=== PATIENT | male | born 1955 | race Caucasian/White ===

== ENCOUNTER 2018-10-19 14:38 | Emergency (ER) | payer OTHER ==
[~2018-10-19] VITALS: Ht 167.6 cm; Wt 81.2 kg
[2018-10-19 14:43] VITALS: BP_SYST 154
[2018-10-19] MEDS ORDERED: OXYMETAZOLINE HCL 0.05% NASAL SPRAY NS ONE (15:15)
[2018-10-19 17:12] VITALS: BP_SYST 150
[2018-10-19] MEDS ORDERED: ATEN-41 PO (20:57)
[2018-10-19] MEDS ORDERED: FLO44 INH (20:57)
[2018-10-19] MEDS ORDERED: ALBU8.5H8 INH (20:57)
[2018-10-19] MEDS ORDERED: ALPR0.5T PO (20:57)
[2018-10-19] MEDS ORDERED: OMEP20CA10 PO (20:57)
[2018-10-19] MEDS ORDERED: OMEG-143 PO (20:57)
[2018-10-19] MEDS ORDERED: TRIA1TAB96 PO (20:57)
[2018-10-19] MEDS ORDERED: BETA45CR3 TP (20:57)
[2018-10-19] MEDS ORDERED: FLUT1DIS3 IH (20:57)
[2018-10-19] MEDS ORDERED: LIP80 PO (20:57)
== END 2018-10-19 17:12 | disposition home or self-care (01) ==
LOC: SED 14:38
DX: R04.0 Epistaxis (principal); I10 Essential (primary) hypertension; E78.5 Hyperlipidemia, unspecified; I48.91 Unspecified atrial fibrillation; Z85.47 Personal history of malignant neoplasm of testis; Z88.0 Allergy status to penicillin
CPT/HCPCS: 99284

== ENCOUNTER 2018-10-19 19:39 | Emergency (ER) | payer OTHER ==
[~2018-10-19] VITALS: Ht 175.3 cm; Wt 86.2 kg
[2018-10-19 19:52] VITALS: BP_SYST 118
[2018-10-19 20:26] LABS: BASOPHILS # (AUTO) 0.4 K/uL (0.0-0.2); BASOPHILS % (AUTO) 4.7 % (0.0-2.0); EOSINOPHILS # (AUTO) 0.3 K/uL (0.0-0.4); EOSINOPHILS % (AUTO) 2.9 % (0.0-4.0); HEMATOCRIT 50.3 % (36-54); HEMOGLOBIN 16.9 g/dL (14.0-18.0); LYMPHOCYTES # (AUTO) 2.1 K/uL (1.0-5.5); LYMPHOCYTES % (AUTO) 22.5 % (20.5-51.5); MEAN CORPUSCULAR HEMOGLOBIN 31 pg (27-31); MEAN CORPUSCULAR HGB CONC 34 % (32-36); MEAN CORPUSCULAR VOLUME 92 fL (79.0-98.0); MONOCYTES % (AUTO) 10.8 % (1.7-9.3); NEUTROPHILS # (AUTO) 5.4 K/uL (1.8-7.7); NEUTROPHILS % (AUTO) 59.1 % (40.0-70.0); PLATELET COUNT (AUTO) 251 K/uL (130-430); RED BLOOD CELL COUNT(AUTO) 5.45 MIL/uL (4.2-6.2); RED CELL DISTRIBUTION WIDTH 13.6 % (9.0-15.0); WHITE BLOOD COUNT (AUTO) 9.3 K/uL (4.8-10.8)
[2018-10-19 20:34] LABS: CALCIUM 9.2 mg/dL (8.4-11.0); CREATININE 0.92 mg/dL (0.55-1.30)
[2018-10-19 20:39] LABS: ALBUMIN 3.7 g/dL (3.4-4.8); TOTAL BILIRUBIN 1.1 mg/dL (0.0-1.0)
[2018-10-19 20:44] LABS: INR 1.1 (0.80-1.20); PROTHROMBIN TIME 11.1 SECS (9.5-12.5)
[2018-10-19] MEDS ORDERED: ATEN-41 PO (20:57)
[2018-10-19] MEDS ORDERED: ALBU8.5H8 INH (20:57)
[2018-10-19] MEDS ORDERED: FLUT1DIS3 IH (20:57)
[2018-10-19] MEDS ORDERED: ALPR0.5T PO (20:57)
[2018-10-19] MEDS ORDERED: TRIA1TAB96 PO (20:57)
[2018-10-19] MEDS ORDERED: BETA45CR3 TP (20:57)
[2018-10-19] MEDS ORDERED: OMEG-143 PO (20:57)
[2018-10-19] MEDS ORDERED: LIP80 PO (20:57)
[2018-10-19] MEDS ORDERED: OMEP20CA10 PO (20:57)
[2018-10-19] MEDS ORDERED: FLO44 INH (20:57)
[2018-10-19 22:30] VITALS: BP_SYST 118
== END 2018-10-19 22:30 | disposition home or self-care (01) ==
LOC: SED 19:39
DX: R04.0 Epistaxis (principal); I48.91 Unspecified atrial fibrillation; I10 Essential (primary) hypertension; E78.5 Hyperlipidemia, unspecified; Z85.47 Personal history of malignant neoplasm of testis; Z88.0 Allergy status to penicillin; Z79.899 Other long term (current) drug therapy
CPT/HCPCS: 36415; 80053; 85025; 85610-TC; 85730-TC; 99283

== ENCOUNTER 2024-01-07 10:10 | Emergency (ER) | payer MEDICARE, OTHER ==
[~2024-01-07] VITALS: Ht 177.8 cm; Wt 78.0 kg
[2024-01-07 10:10] VITALS: BP_SYST 137; PULSE 89; RESP 19; TEMP 98.2; O2SAT 96
[~2024-01-07 10:10] MED LIST: ALBU8.5H8 INH; ALPR0.5T PO; ATEN-41 PO; BETA45CR3 TP; FLO44 INH; FLUT1DIS3 INH; LIP80 PO; OMEG-143 PO; OMEP20CA15 PO; TRIA1TAB96 PO
[2024-01-07 11:22] LABS: BASOPHILS # (AUTO) 0.1 K/uL (0.0-0.2); BASOPHILS % (AUTO) 2.5 % (0.0-2.0); EOSINOPHILS # (AUTO) 0.1 K/uL (0.0-0.4); HEMATOCRIT 34.5 % (36-54); HEMOGLOBIN 11.9 g/dL (14.0-18.0); LYMPHOCYTES # (AUTO) 0.6 K/uL (1.0-5.5); LYMPHOCYTES % (AUTO) 18.2 % (20.5-51.5); MEAN CORPUSCULAR HEMOGLOBIN 35 pg (27-31); MEAN CORPUSCULAR HGB CONC 34 % (32-36); MEAN CORPUSCULAR VOLUME 101 fL (79.0-98.0); MONOCYTES # (AUTO) 0.6 K/uL (0.0-1.0); MONOCYTES % (AUTO) 17.2 % (1.7-9.3); NEUTROPHILS % (AUTO) 58.1 % (40.0-70.0); PLATELET COUNT (AUTO) 79 K/uL (130-430); RED BLOOD CELL COUNT(AUTO) 3.43 MIL/uL (4.2-6.2); RED CELL DISTRIBUTION WIDTH 15.5 % (9.0-15.0)
[2024-01-07 11:24] LABS: WHITE BLOOD COUNT (AUTO) 3.5 K/uL (4.8-10.8)
[2024-01-07 11:33] LABS: ANION GAP 9 (5-15); CALCIUM 8.8 mg/dL (8.4-11.0); CARBON DIOXIDE 25 mmol/L (23-29); CHLORIDE 103 mmol/L (98-107); CREATININE 1.61 mg/dL (0.55-1.30); GFR AFRICAN AMERICAN 55 mL/min (>90); GFR NON AFRICAN-AMERICAN 46 mL/min (>90); GLUCOSE 98 mg/dL (74-106); POTASSIUM 3.6 mmol/L (3.5-5.1); SODIUM SERUM 137 mmol/L (136-145); UREA NITROGEN, BLOOD 15 mg/dL (8-21)
[2024-01-07 11:40] LABS: ALANINE AMINOTRANSFERASE 22 U/L (12-78); ALBUMIN 2.3 g/dL (3.4-4.8); ALCOHOL, BLOOD 9 mg/dL (<10); ASPARTATE AMINOTRANSFERASE 54 U/L (10-37); BILIRUBIN,DIRECT 1.8 mg/dL (0.0-0.3); TOTAL BILIRUBIN 3.2 mg/dL (0.0-1.0); TOTAL PROTEIN, SERUM 7.8 g/dL (6.4-8.3)
[2024-01-07] MEDS: LIDOCAINE 1% 10 MG/ML, 20 ML MDV INJ ONE (12:30)
[2024-01-07] MEDS ORDERED: TRIA1CAP88 PO (13:12)
[2024-01-07 14:26] VITALS: BP_SYST 141; PULSE 75; RESP 17; TEMP 97.8; O2SAT 100
== END 2024-01-07 14:25 | disposition left against medical advice (07) ==
LOC: SED 10:10
DX: S63.124A Dislocation of interphalangeal joint of right thumb, initial encounter (principal); S01.81XA Laceration without foreign body of other part of head, initial encounter; R55 Syncope and collapse; R74.01 Elevation of levels of liver transaminase levels; J45.909 Unspecified asthma, uncomplicated; E78.5 Hyperlipidemia, unspecified; I10 Essential (primary) hypertension; Z85.47 Personal history of malignant neoplasm of testis; Z88.0 Allergy status to penicillin; Z79.899 Other long term (current) drug therapy; W22.8XXA Striking against or struck by other objects, initial encounter; Y93.89 Activity, other specified; Y92.89 Other specified places as the place of occurrence of the external cause; Y99.8 Other external cause status
CPT/HCPCS: 99285; 26770; 70450; 71045; 80076; 80048; 83880; 85025; 84484; 36415; 73140; 76376; 93005; 12011; G0482; J2001

== ENCOUNTER 2024-01-25 07:56 | Emergency (ER) | payer MEDICARE ==
[~2024-01-25] VITALS: Ht 177.8 cm; Wt 78.0 kg
[2024-01-25 07:56] VITALS: BP_SYST 132; PULSE 75; RESP 19; TEMP 97.2; O2SAT 95
[~2024-01-25 07:56] MED LIST changes: -BETA45CR3 TP; -FLO44 INH; -LIP80 PO; -OMEG-143 PO; +TRIA1CAP88 PO; -TRIA1TAB96 PO
== END 2024-01-25 08:08 | disposition home or self-care (01) ==
LOC: SED 07:56
DX: Z48.02 Encounter for removal of sutures (principal); J45.909 Unspecified asthma, uncomplicated; I10 Essential (primary) hypertension; E78.5 Hyperlipidemia, unspecified; Z88.0 Allergy status to penicillin; Z85.47 Personal history of malignant neoplasm of testis; Z79.899 Other long term (current) drug therapy
CPT/HCPCS: 99281

== ENCOUNTER 2024-09-12 09:14 | Inpatient (IN) | payer MEDICARE ==
[~2024-09-12] VITALS: Ht 177.8 cm; Wt 83.9 kg
[2024-09-12 09:25] VITALS: BP_SYST 91; PULSE 81; RESP 16; TEMP 96.9; O2SAT 95
[2024-09-12] MEDS: NS 1000 ML IV.SOLN IV ONE (09:48)
[2024-09-12 10:26] LABS: EOSINOPHILS % (AUTO) 0.5 % (0.0-4.0); LYMPHOCYTES # (AUTO) 0.4 K/uL (1.0-5.5); LYMPHOCYTES % (AUTO) 7.2 % (20.5-51.5); MONOCYTES # (AUTO) 0.8 K/uL (0.0-1.0)
[2024-09-12] MEDS: KETOROLAC TROMETHAMINE 30 MG VIAL IVP ONE (10:28)
[2024-09-12 10:48] LABS: BASOPHILS % (AUTO) 0.2 % (0.0-2.0); MEAN CORPUSCULAR HEMOGLOBIN 37 pg (27-31); MEAN CORPUSCULAR HGB CONC 35 % (32-36); MEAN CORPUSCULAR VOLUME 105 fL (79.0-98.0); MONOCYTES % (AUTO) 14.6 % (1.7-9.3); NEUTROPHILS # (AUTO) 4.1 K/uL (1.8-7.7); NEUTROPHILS % (AUTO) 77.5 % (40.0-70.0); RED CELL DISTRIBUTION WIDTH 17.9 % (9.0-15.0); WHITE BLOOD COUNT (AUTO) 5.3 K/uL (4.8-10.8)
[2024-09-12 11:04] LABS: RED BLOOD CELL COUNT(AUTO) 1.71 MIL/uL (4.2-6.2)
[2024-09-12 11:05] LABS: HEMOGLOBIN 6.3 g/dL (14.0-18.0)
[2024-09-12 11:06] LABS: ALANINE AMINOTRANSFERASE 78 U/L (12-78); ALBUMIN 3.2 g/dL (3.4-4.8); ANION GAP 16 (5-15); ASPARTATE AMINOTRANSFERASE 93 U/L (10-37); BILIRUBIN,DIRECT 4.8 mg/dL (0.0-0.3); CALCIUM 8.8 mg/dL (8.4-11.0); CARBON DIOXIDE 16 mmol/L (23-29); CHLORIDE 86 mmol/L (98-107); CREATININE 3.86 mg/dL (0.55-1.30); GFR AFRICAN AMERICAN 20 mL/min (>90); GLUCOSE 110 mg/dL (74-106); HEMATOCRIT 17.9 % (36-54); POTASSIUM 5.3 mmol/L (3.5-5.1); TOTAL BILIRUBIN 12.2 mg/dL (0.0-1.0); TOTAL PROTEIN, SERUM 5.5 g/dL (6.4-8.3)
[2024-09-12 11:13] LABS: GFR NON AFRICAN-AMERICAN 17 mL/min (>90); SODIUM SERUM 118 mmol/L (136-145); UREA NITROGEN, BLOOD 118 mg/dL (8-21)
[2024-09-12] MEDS ORDERED: HYD10 PO (11:58)
[2024-09-12] MEDS ORDERED: MIDO5TAB4 PO (11:58)
[2024-09-12] MEDS ORDERED: LACT10SO6 PO (11:58)
[2024-09-12] MEDS ORDERED: ERGO1250 PO (11:58)
[2024-09-12] MEDS ORDERED: ALBMDI INH (11:58)
[2024-09-12] MEDS ORDERED: TAMS-11 PO (11:58)
[2024-09-12] MEDS ORDERED: RIFA550T5 PO (11:58)
[2024-09-12 12:17] LABS: PLATELET COUNT (AUTO) 49 K/uL (130-430)
[2024-09-12 12:28] LABS: BILIRUBIN,URINE NEGATIVE (NEGATIVE); BLOOD, URINE NEGATIVE (NEGATIVE); CLARITY/URINE CLEAR (CLEAR); COLOR,URINE YELLOW (YELLOW); GLUCOSE,URINE NEGATIVE (NEGATIVE); KETONES,URINE NEGATIVE (NEGATIVE); LEUKOCYTE ESTERASE ,URINE NEGATIVE (NEGATIVE); NITRITE, URINE NEGATIVE (NEGATIVE); PROTEIN URINE NEGATIVE (NEGATIVE); UROBILINOGEN,URINE 0.2 (0.2-1.0)
[2024-09-12 13:10] LABS: ANISOCYTOSIS 1+
[2024-09-12] MEDS ORDERED: KETOROLAC TROMETHAMINE 30 MG VIAL IVP PRN (13:45)
[2024-09-12 16:24] VITALS: BP_SYST 95; PULSE 76; RESP 15; TEMP 96.8
[2024-09-12 20:15] VITALS: BP_SYST 93; PULSE 79; RESP 18; TEMP 96.2; O2SAT 98
[2024-09-13] VITALS (9 sets, daily range): BP systolic 82–112; PULSE 69–89; RESP 16–20; TEMP 96.3–98.4; O2SAT 16–99
[2024-09-13] MEDS: NACL 0.9% 1,000 ML IV SCH (02:22)
[2024-09-13] MEDS ORDERED: ALBUTEROL SULFATE 0.083% 2.5 MG/3 ML VIAL.NEB INH PRN (09:30)
[2024-09-13] MEDS ORDERED: IPRATROPIUM BROM 0.5 MG/2.5 ML VIAL.NEB (ATROVENT) INH PRN (09:30)
[2024-09-13] MEDS: D5/0.45 NS 1,000 ML IV SCH (09:30)
[2024-09-13] MEDS ORDERED: OMEPRAZOLE Non-Formulary 20 MG CAPSULE.DR PO SCH (09:30)
[2024-09-13] MEDS: HYDROcodone/ACETAMIN 10-325 MG TAB PO PRN (09:35)
[2024-09-13 11:09] LABS: INR 2.2 (0.80-1.20)
[2024-09-13 11:13] LABS: EOSINOPHILS % (AUTO) 0.6 % (0.0-4.0); LYMPHOCYTES # (AUTO) 0.4 K/uL (1.0-5.5); LYMPHOCYTES % (AUTO) 6.2 % (20.5-51.5); MEAN CORPUSCULAR HEMOGLOBIN 36 pg (27-31); MEAN CORPUSCULAR HGB CONC 35 % (32-36); MEAN CORPUSCULAR VOLUME 102 fL (79.0-98.0); MONOCYTES # (AUTO) 0.4 K/uL (0.0-1.0); NEUTROPHILS # (AUTO) 5.3 K/uL (1.8-7.7); PLATELET COUNT (AUTO) 55 K/uL (130-430); WHITE BLOOD COUNT (AUTO) 6.2 K/uL (4.8-10.8)
[2024-09-13 11:17] LABS: ALBUMIN 2.7 g/dL (3.4-4.8); CALCIUM 8.6 mg/dL (8.4-11.0); CREATININE 3.73 mg/dL (0.55-1.30); PHOSPHORUS 7.6 mg/dL (2.7-4.5); POTASSIUM 5.3 mmol/L (3.5-5.1); TOTAL BILIRUBIN 10.7 mg/dL (0.0-1.0)
[2024-09-13 11:25] LABS: RED BLOOD CELL COUNT(AUTO) 1.91 MIL/uL (4.2-6.2)
[2024-09-13 11:27] LABS: HEMATOCRIT 19.4 % (36-54); HEMOGLOBIN 6.8 g/dL (14.0-18.0)
[2024-09-13] MEDS: ONDANSETRON HCL 4 MG/2 ML VIAL IVP PRN (11:42)
[2024-09-13 12:28] LABS: NEUTROPHILS % (AUTO) 86.2 % (40.0-70.0)
[2024-09-13 12:30] LABS: ANISOCYTOSIS 2+
[2024-09-13 13:09] LABS: PROTHROMBIN TIME 21.2 SECS (9.5-12.5)
[2024-09-13] MEDS: PANTOPRAZOLE SODIUM 40 MG TAB PO ONE (15:35)
[2024-09-13] MEDS ORDERED: FLUTICASONE 250 mCg/SALMETEROL 50 mCg DISKUS W.DEV INH SCH (21:00)
[2024-09-13] MEDS: LACTULOSE 20 GM/30 ML UDC PO SCH (22:56)
[2024-09-13] MEDS: RIFAXIMIN 550 MG TABLET PO SCH (22:56)
[2024-09-13] MEDS: MIDODRINE HCL 5 MG TABLET (PROAMATINE) PO SCH (22:56)
[2024-09-13] MEDS: HYDROCORTISONE 10 MG TABLET (CORTEF) PO SCH (22:57)
[2024-09-13] MEDS: TAMSULOSIN HCL 0.4 MG CAP PO SCH (22:58)
[2024-09-14] VITALS (11 sets, daily range): BP systolic 86–131; PULSE 67–98; RESP 16–20; TEMP 95.4–98.1; O2SAT 93–100
[2024-09-14] MEDS: ALBUMIN HUMAN 25% 100 ML IV SCH (01:07)
[2024-09-14] MEDS: OCTREOTIDE ACETATE 100 MCG/ML AMP SUBCUT SCH (06:00)
[2024-09-14 07:10] LABS: BASOPHILS % (AUTO) 0.1 % (0.0-2.0); EOSINOPHILS % (AUTO) 0.3 % (0.0-4.0); HEMATOCRIT 23.5 % (36-54); HEMOGLOBIN 8.3 g/dL (14.0-18.0); LYMPHOCYTES # (AUTO) 0.1 K/uL (1.0-5.5); MEAN CORPUSCULAR HEMOGLOBIN 36 pg (27-31); MEAN CORPUSCULAR HGB CONC 35 % (32-36); MEAN CORPUSCULAR VOLUME 101 fL (79.0-98.0); MONOCYTES # (AUTO) 0.5 K/uL (0.0-1.0); MONOCYTES % (AUTO) 6.5 % (1.7-9.3); NEUTROPHILS # (AUTO) 6.6 K/uL (1.8-7.7); NEUTROPHILS % (AUTO) 91.1 % (40.0-70.0); RED BLOOD CELL COUNT(AUTO) 2.32 MIL/uL (4.2-6.2); RED CELL DISTRIBUTION WIDTH 21.5 % (9.0-15.0); RETICULOCYTE COUNT 3.5 % (0.5-1.5); WHITE BLOOD COUNT (AUTO) 7.3 K/uL (4.8-10.8)
[2024-09-14 07:28] LABS: CREATININE 3.63 mg/dL (0.55-1.30); PHOSPHORUS 7.9 mg/dL (2.7-4.5); POTASSIUM 5.4 mmol/L (3.5-5.1)
[2024-09-14 07:33] LABS: TOTAL IRON BIND. CAPACITY 107 ug/dL (250-450)
[2024-09-14 08:27] LABS: PLATELET COUNT (AUTO) 43 K/uL (130-430)
[2024-09-14] MEDS: LEVOFLOXACIN 250 MG/D5W 50 ML IV SCH (08:35)
[2024-09-14] MEDS: NACL 0.9% 1,000 ML IV SCH (09:45)
[2024-09-14] MEDS: PANTOPRAZOLE SODIUM 40 MG TAB PO SCH (10:21)
[2024-09-14] MEDS: SODIUM BICARBONATE 650 MG TABLET PO SCH (10:26)
[2024-09-14 11:51] LABS: ANISOCYTOSIS 2+; OVALOCYTES FEW
[2024-09-14] MEDS: ALBUTEROL SULFATE 0.083% 2.5 MG/3 ML VIAL.NEB INH SCH (11:51)
[2024-09-14] MEDS: BUDESONIDE 0.5 MG/2 ML AMPUL.NEB IH SCH (11:51)
[2024-09-14] MEDS: SODIUM ZIRCONIUM CYCLOSILICATE 10 GM POWD.PACK PO ONE (12:47)
[2024-09-14] MEDS: SEVELAMER CARBONATE 800 MG TABLET PO SCH (12:49)
[2024-09-14] MEDS: SODIUM BICARBONATE 8.4% JECT 50 MEQ/50 ML SYRINGE ONE (13:55)
[2024-09-14] MEDS: SODIUM BICARBONATE 8.4% JECT 150 MEQ in D5W 1,000 ML IVP SCH (14:04)
[2024-09-14] MEDS: metroNIDAZOLE 500 mg/NS 100 ML IV SCH (14:08)
[2024-09-14] MEDS: SODIUM BICARBONATE 8.4% JECT 150 MEQ in D5W 1,000 ML IV SCH (14:54)
[2024-09-14] MEDS: PHYTONADIONE 10 MG in NS 50 ML IV ONE (16:36)
[2024-09-14 20:52] LABS: CREATININE 3.73 mg/dL (0.55-1.30); POTASSIUM 4.5 mmol/L (3.5-5.1)
[2024-09-14] MEDS: SODIUM CHLORIDE 3% *HI-ALERT* 500 ML IV SCH (21:21)
[2024-09-14] MEDS: MIDODRINE HCL 5 MG TABLET (PROAMATINE) PO SCH (21:22)
[2024-09-15 00:01] VITALS: BP_SYST 107; PULSE 96; RESP 18; TEMP 96.2; O2SAT 100
[2024-09-15 07:10] LABS: EOSINOPHILS % (AUTO) 0.1 % (0.0-4.0); LYMPHOCYTES # (AUTO) 0.1 K/uL (1.0-5.5); LYMPHOCYTES % (AUTO) 2.3 % (20.5-51.5); MEAN CORPUSCULAR HEMOGLOBIN 36 pg (27-31); MEAN CORPUSCULAR HGB CONC 36 % (32-36); MEAN CORPUSCULAR VOLUME 100 fL (79.0-98.0); MONOCYTES # (AUTO) 0.2 K/uL (0.0-1.0); MONOCYTES % (AUTO) 4.5 % (1.7-9.3); NEUTROPHILS # (AUTO) 3.6 K/uL (1.8-7.7); NEUTROPHILS % (AUTO) 93.1 % (40.0-70.0); RED CELL DISTRIBUTION WIDTH 21.3 % (9.0-15.0); WHITE BLOOD COUNT (AUTO) 3.8 K/uL (4.8-10.8)
[2024-09-15 07:15] VITALS: O2SAT 98
[2024-09-15 07:42] LABS: INR 2.5 (0.80-1.20); PROTHROMBIN TIME 24.7 SECS (9.5-12.5)
[2024-09-15 07:47] LABS: ALBUMIN 3.2 g/dL (3.4-4.8); CALCIUM 9.3 mg/dL (8.4-11.0); CREATININE 3.7 mg/dL (0.55-1.30); PHOSPHORUS 8.5 mg/dL (2.7-4.5); POTASSIUM 4.6 mmol/L (3.5-5.1); RED BLOOD CELL COUNT(AUTO) 1.88 MIL/uL (4.2-6.2); TOTAL BILIRUBIN 11.4 mg/dL (0.0-1.0)
[2024-09-15 07:50] LABS: HEMATOCRIT 18.8 % (36-54); HEMOGLOBIN 6.7 g/dL (14.0-18.0); PLATELET COUNT (AUTO) 33 K/uL (130-430)
[2024-09-15 08:00] VITALS: BP_SYST 115; PULSE 99; RESP 20; TEMP 98.1; O2SAT 98
[2024-09-15 11:05] VITALS: BP_SYST 91; PULSE 106; RESP 16; TEMP 97.5; O2SAT 99
[2024-09-15] MEDS: ERGOCALCIFEROL PO SCH (12:43)
[2024-09-15] MEDS: SODIUM BICARBONATE 650 MG TABLET PO SCH (15:05)
[2024-09-15] MEDS: FOLIC ACID 1 MG TABLET PO ONE (15:13)
[2024-09-15 15:21] VITALS: BP_SYST 116; PULSE 101; RESP 16; TEMP 97; O2SAT 99
[2024-09-15 20:00] VITALS: BP_SYST 104; PULSE 96; RESP 16; TEMP 97.8; O2SAT 100; O2SAT 98
[2024-09-16] VITALS (11 sets, daily range): BP systolic 97–110; PULSE 87–105; RESP 14–17; TEMP 97.2–98.2; O2SAT 95–100
[2024-09-16 07:06] LABS: INR 1.9 (0.80-1.20); PROTHROMBIN TIME 18.9 SECS (9.5-12.5)
[2024-09-16 07:21] LABS: CALCIUM 9.4 mg/dL (8.4-11.0); CREATININE 3.53 mg/dL (0.55-1.30); PHOSPHORUS 7.5 mg/dL (2.7-4.5); POTASSIUM 4.4 mmol/L (3.5-5.1)
[2024-09-16 07:32] LABS: BASOPHILS % (AUTO) 0.2 % (0.0-2.0); EOSINOPHILS % (AUTO) 0.2 % (0.0-4.0); HEMOGLOBIN 7.3 g/dL (14.0-18.0); LYMPHOCYTES # (AUTO) 0.2 K/uL (1.0-5.5); LYMPHOCYTES % (AUTO) 3.7 % (20.5-51.5); MEAN CORPUSCULAR HEMOGLOBIN 34 pg (27-31); MEAN CORPUSCULAR HGB CONC 35 % (32-36); MEAN CORPUSCULAR VOLUME 98 fL (79.0-98.0); MONOCYTES # (AUTO) 0.3 K/uL (0.0-1.0); NEUTROPHILS # (AUTO) 4.1 K/uL (1.8-7.7); NEUTROPHILS % (AUTO) 88.9 % (40.0-70.0); RED BLOOD CELL COUNT(AUTO) 2.13 MIL/uL (4.2-6.2); RED CELL DISTRIBUTION WIDTH 21.5 % (9.0-15.0); WHITE BLOOD COUNT (AUTO) 4.6 K/uL (4.8-10.8)
[2024-09-16 07:45] LABS: HEMATOCRIT 20.8 % (36-54)
[2024-09-16 07:46] LABS: PLATELET COUNT (AUTO) 31 K/uL (130-430)
[2024-09-16] MEDS: FOLIC ACID 1 MG TABLET PO SCH (09:52)
[2024-09-16] MEDS: PHYTONADIONE 10 MG/ML AMP SUBCUT ONE (10:00)
[2024-09-16] MEDS: HYDROcodone/ACETAMIN 5-325 MG TAB (NORCO/ VICODIN) PO PRN (14:47)
[2024-09-16] MEDS: MIDODRINE HCL 5 MG TABLET (PROAMATINE) PO SCH (16:35)
[2024-09-17] VITALS (9 sets, daily range): BP systolic 105–119; PULSE 88–93; RESP 16; TEMP 98.1–98.4; O2SAT 96–100
[2024-09-17 05:40] LABS: EOSINOPHILS % (AUTO) 0.2 % (0.0-4.0); HEMOGLOBIN 7.3 g/dL (14.0-18.0); LYMPHOCYTES # (AUTO) 0.2 K/uL (1.0-5.5); LYMPHOCYTES % (AUTO) 4.2 % (20.5-51.5); MEAN CORPUSCULAR HEMOGLOBIN 34 pg (27-31); MEAN CORPUSCULAR HGB CONC 34 % (32-36); MEAN CORPUSCULAR VOLUME 100 fL (79.0-98.0); MONOCYTES # (AUTO) 0.3 K/uL (0.0-1.0); MONOCYTES % (AUTO) 6.9 % (1.7-9.3); NEUTROPHILS # (AUTO) 4.5 K/uL (1.8-7.7); NEUTROPHILS % (AUTO) 88.7 % (40.0-70.0); RED BLOOD CELL COUNT(AUTO) 2.14 MIL/uL (4.2-6.2); RED CELL DISTRIBUTION WIDTH 21.6 % (9.0-15.0); WHITE BLOOD COUNT (AUTO) 5.1 K/uL (4.8-10.8)
[2024-09-17 06:02] LABS: INR 1.9 (0.80-1.20); PROTHROMBIN TIME 19.6 SECS (9.5-12.5)
[2024-09-17 06:19] LABS: ALBUMIN 3.1 g/dL (3.4-4.8); BILIRUBIN,DIRECT 3.4 mg/dL (0.0-0.3); CALCIUM 8.8 mg/dL (8.4-11.0); CREATININE 3.27 mg/dL (0.55-1.30); PHOSPHORUS 7.1 mg/dL (2.7-4.5); POTASSIUM 4.8 mmol/L (3.5-5.1); TOTAL BILIRUBIN 10.6 mg/dL (0.0-1.0)
[2024-09-17 06:31] LABS: HEMATOCRIT 21.4 % (36-54); PLATELET COUNT (AUTO) 27 K/uL (130-430)
[2024-09-17 06:56] LABS: ERYTHROCYTE SEDIMENTATION RATE < 1 MM/HR (0-15)
[2024-09-17] MEDS: ACETAMINOPHEN 325 MG TABLET PO PRN (22:23)
[2024-09-18] VITALS (11 sets, daily range): BP systolic 105–127; PULSE 99–104; RESP 18–20; TEMP 97.4–98; O2SAT 95–100
[2024-09-18 07:13] LABS: BASOPHILS % (AUTO) 0.1 % (0.0-2.0); EOSINOPHILS % (AUTO) 0.1 % (0.0-4.0); HEMOGLOBIN 7.2 g/dL (14.0-18.0); LYMPHOCYTES # (AUTO) 0.2 K/uL (1.0-5.5); LYMPHOCYTES % (AUTO) 3.9 % (20.5-51.5); MEAN CORPUSCULAR HEMOGLOBIN 34 pg (27-31); MEAN CORPUSCULAR HGB CONC 34 % (32-36); MEAN CORPUSCULAR VOLUME 100 fL (79.0-98.0); MONOCYTES # (AUTO) 0.6 K/uL (0.0-1.0); MONOCYTES % (AUTO) 9.1 % (1.7-9.3); NEUTROPHILS # (AUTO) 5.4 K/uL (1.8-7.7); NEUTROPHILS % (AUTO) 86.8 % (40.0-70.0); RED BLOOD CELL COUNT(AUTO) 2.12 MIL/uL (4.2-6.2); RED CELL DISTRIBUTION WIDTH 22.1 % (9.0-15.0); WHITE BLOOD COUNT (AUTO) 6.3 K/uL (4.8-10.8)
[2024-09-18 07:38] LABS: CALCIUM 8.9 mg/dL (8.4-11.0); CREATININE 3.31 mg/dL (0.55-1.30); PHOSPHORUS 6.6 mg/dL (2.7-4.5); POTASSIUM 4.9 mmol/L (3.5-5.1)
[2024-09-18 07:39] LABS: ERYTHROCYTE SEDIMENTATION RATE < 1 MM/HR (0-15)
[2024-09-18 08:00] LABS: HEMATOCRIT 21.2 % (36-54)
[2024-09-18 08:01] LABS: PLATELET COUNT (AUTO) 26 K/uL (130-430)
[2024-09-19] VITALS (14 sets, daily range): BP systolic 107–118; PULSE 81–110; RESP 17–20; TEMP 96.9–98.2; O2SAT 95–98
[2024-09-19 07:58] LABS: CALCIUM 9.1 mg/dL (8.4-11.0); CREATININE 3.62 mg/dL (0.55-1.30); PHOSPHORUS 6.7 mg/dL (2.7-4.5)
[2024-09-19 08:07] LABS: BASOPHILS % (AUTO) 0.1 % (0.0-2.0); EOSINOPHILS % (AUTO) 0.1 % (0.0-4.0); HEMATOCRIT 22.3 % (36-54); HEMOGLOBIN 7.6 g/dL (14.0-18.0); LYMPHOCYTES # (AUTO) 0.2 K/uL (1.0-5.5); LYMPHOCYTES % (AUTO) 2.7 % (20.5-51.5); MEAN CORPUSCULAR HEMOGLOBIN 34 pg (27-31); MEAN CORPUSCULAR HGB CONC 34 % (32-36); MEAN CORPUSCULAR VOLUME 101 fL (79.0-98.0); MONOCYTES # (AUTO) 0.7 K/uL (0.0-1.0); MONOCYTES % (AUTO) 7.5 % (1.7-9.3); RED BLOOD CELL COUNT(AUTO) 2.22 MIL/uL (4.2-6.2); RED CELL DISTRIBUTION WIDTH 21.7 % (9.0-15.0); WHITE BLOOD COUNT (AUTO) 8.9 K/uL (4.8-10.8)
[2024-09-19 08:35] LABS: PLATELET COUNT (AUTO) 28 K/uL (130-430)
[2024-09-19] MEDS: LORazepam 2 MG/ML VIAL IVP PRN (09:55)
[2024-09-19 10:01] LABS: CALCIUM 9.3 mg/dL (8.4-11.0); CREATININE 3.72 mg/dL (0.55-1.30); POTASSIUM 5.2 mmol/L (3.5-5.1)
[2024-09-19 10:07] LABS: NEUTROPHILS % (AUTO) 89.6 % (40.0-70.0)
[2024-09-19 10:15] LABS: BASOPHILS % (AUTO) 0.1 % (0.0-2.0); EOSINOPHILS % (AUTO) 0.2 % (0.0-4.0); HEMATOCRIT 22.1 % (36-54); HEMOGLOBIN 7.6 g/dL (14.0-18.0); LYMPHOCYTES # (AUTO) 0.4 K/uL (1.0-5.5); LYMPHOCYTES % (AUTO) 3.8 % (20.5-51.5); MEAN CORPUSCULAR HEMOGLOBIN 35 pg (27-31); MEAN CORPUSCULAR HGB CONC 35 % (32-36); MEAN CORPUSCULAR VOLUME 101 fL (79.0-98.0); MONOCYTES # (AUTO) 0.8 K/uL (0.0-1.0); MONOCYTES % (AUTO) 8.7 % (1.7-9.3); NEUTROPHILS # (AUTO) 8.2 K/uL (1.8-7.7); NEUTROPHILS % (AUTO) 87.2 % (40.0-70.0); RED BLOOD CELL COUNT(AUTO) 2.19 MIL/uL (4.2-6.2); RED CELL DISTRIBUTION WIDTH 21.9 % (9.0-15.0); WHITE BLOOD COUNT (AUTO) 9.3 K/uL (4.8-10.8)
[2024-09-19 10:20] LABS: ERYTHROCYTE SEDIMENTATION RATE < 1 MM/HR (0-15)
[2024-09-19 10:35] LABS: PLATELET COUNT (AUTO) 30 K/uL (130-430)
[2024-09-20] VITALS (10 sets, daily range): BP systolic 102–127; PULSE 90–100; RESP 18–19; TEMP 96.4–97.4; O2SAT 96–98
[2024-09-20 08:03] LABS: CALCIUM 9.8 mg/dL (8.4-11.0); CREATININE 3.77 mg/dL (0.55-1.30); PHOSPHORUS 7.5 mg/dL (2.7-4.5); POTASSIUM 5.3 mmol/L (3.5-5.1); TOTAL BILIRUBIN 12.8 mg/dL (0.0-1.0); TOTAL PROTEIN, SERUM 5.2 g/dL (6.4-8.3)
[2024-09-20 08:37] LABS: BASOPHILS % (AUTO) 0.1 % (0.0-2.0); EOSINOPHILS % (AUTO) 0.3 % (0.0-4.0); HEMOGLOBIN 7.1 g/dL (14.0-18.0); LYMPHOCYTES # (AUTO) 0.4 K/uL (1.0-5.5); LYMPHOCYTES % (AUTO) 3.6 % (20.5-51.5); MEAN CORPUSCULAR HEMOGLOBIN 35 pg (27-31); MEAN CORPUSCULAR HGB CONC 34 % (32-36); MEAN CORPUSCULAR VOLUME 102 fL (79.0-98.0); MONOCYTES # (AUTO) 0.7 K/uL (0.0-1.0); MONOCYTES % (AUTO) 7.1 % (1.7-9.3); NEUTROPHILS # (AUTO) 8.9 K/uL (1.8-7.7); NEUTROPHILS % (AUTO) 88.9 % (40.0-70.0); RED BLOOD CELL COUNT(AUTO) 2.02 MIL/uL (4.2-6.2); RED CELL DISTRIBUTION WIDTH 21.7 % (9.0-15.0)
[2024-09-20 08:50] LABS: HEMATOCRIT 20.6 % (36-54); PLATELET COUNT (AUTO) 26 K/uL (130-430)
[2024-09-20 09:02] LABS: ERYTHROCYTE SEDIMENTATION RATE < 1 MM/HR (0-15)
[2024-09-20] MEDS: BUDESONIDE 0.5 MG/2 ML AMPUL.NEB IH SCH (19:49)
[2024-09-20] MEDS: HALOPERIDOL LACTATE 5 MG/ML VIAL IM ONE (20:13)
[2024-09-21] VITALS (11 sets, daily range): BP systolic 104–155; PULSE 84–114; RESP 18–20; TEMP 96.6–98.7; O2SAT 93–99
[2024-09-21 07:26] LABS: BASOPHILS % (AUTO) 0.1 % (0.0-2.0); EOSINOPHILS % (AUTO) 0.1 % (0.0-4.0); LYMPHOCYTES # (AUTO) 0.2 K/uL (1.0-5.5); LYMPHOCYTES % (AUTO) 2.2 % (20.5-51.5); MEAN CORPUSCULAR HEMOGLOBIN 35 pg (27-31); MEAN CORPUSCULAR HGB CONC 35 % (32-36); MEAN CORPUSCULAR VOLUME 101 fL (79.0-98.0); MONOCYTES # (AUTO) 0.4 K/uL (0.0-1.0); MONOCYTES % (AUTO) 4.6 % (1.7-9.3); NEUTROPHILS # (AUTO) 8.2 K/uL (1.8-7.7); RED CELL DISTRIBUTION WIDTH 21.5 % (9.0-15.0); WHITE BLOOD COUNT (AUTO) 8.8 K/uL (4.8-10.8)
[2024-09-21 07:53] LABS: CALCIUM 9.5 mg/dL (8.4-11.0); CREATININE 4.07 mg/dL (0.55-1.30); PHOSPHORUS 7.9 mg/dL (2.7-4.5); POTASSIUM 5.4 mmol/L (3.5-5.1)
[2024-09-21 08:29] LABS: INR 2.3 (0.80-1.20); PROTHROMBIN TIME 23.3 SECS (9.5-12.5)
[2024-09-21 08:35] LABS: ERYTHROCYTE SEDIMENTATION RATE < 1 MM/HR (0-15)
[2024-09-21 09:04] LABS: RED BLOOD CELL COUNT(AUTO) 1.92 MIL/uL (4.2-6.2)
[2024-09-21 09:09] LABS: HEMATOCRIT 19.3 % (36-54); HEMOGLOBIN 6.7 g/dL (14.0-18.0); PLATELET COUNT (AUTO) 15 K/uL (130-430)
[2024-09-21] MEDS: SODIUM POLYSTYRENE SULFONATE 15 GM/60 ML UDBTL RC ONE (09:30)
[2024-09-21] MEDS: PHYTONADIONE 10 MG in NS 50 ML IV ONE ×2 (13:00→15:26)
[2024-09-22] VITALS (14 sets, daily range): BP systolic 101–143; PULSE 93–105; RESP 16–20; TEMP 96–97.4; O2SAT 95–100
[2024-09-22 01:23] LABS: CALCIUM 9.5 mg/dL (8.4-11.0); PHOSPHORUS 8.4 mg/dL (2.7-4.5); POTASSIUM 5.3 mmol/L (3.5-5.1); TOTAL BILIRUBIN 9.8 mg/dL (0.0-1.0); TOTAL PROTEIN, SERUM 5.3 g/dL (6.4-8.3)
[2024-09-22 06:56] LABS: EOSINOPHILS % (AUTO) 0.1 % (0.0-4.0); LYMPHOCYTES # (AUTO) 0.2 K/uL (1.0-5.5); LYMPHOCYTES % (AUTO) 1.9 % (20.5-51.5); MEAN CORPUSCULAR HEMOGLOBIN 34 pg (27-31); MEAN CORPUSCULAR HGB CONC 34 % (32-36); MEAN CORPUSCULAR VOLUME 98 fL (79.0-98.0); MONOCYTES # (AUTO) 0.5 K/uL (0.0-1.0); MONOCYTES % (AUTO) 5.7 % (1.7-9.3); NEUTROPHILS # (AUTO) 8.8 K/uL (1.8-7.7); NEUTROPHILS % (AUTO) 92.3 % (40.0-70.0); RED BLOOD CELL COUNT(AUTO) 2.08 MIL/uL (4.2-6.2); RED CELL DISTRIBUTION WIDTH 21.7 % (9.0-15.0); WHITE BLOOD COUNT (AUTO) 9.6 K/uL (4.8-10.8)
[2024-09-22 07:42] LABS: HEMATOCRIT 20.5 % (36-54); PLATELET COUNT (AUTO) 17 K/uL (130-430)
[2024-09-23 01:07] VITALS: BP_SYST 114; PULSE 101; RESP 17; TEMP 97.3; O2SAT 98
[2024-09-23 07:03] LABS: INR 2.2 (0.80-1.20); PROTHROMBIN TIME 22.5 SECS (9.5-12.5)
[2024-09-23 07:15] VITALS: O2SAT 96
[2024-09-23 07:28] LABS: CALCIUM 9.4 mg/dL (8.4-11.0); CREATININE 4.38 mg/dL (0.55-1.30); PHOSPHORUS 8.4 mg/dL (2.7-4.5); POTASSIUM 5.5 mmol/L (3.5-5.1)
[2024-09-23 07:54] LABS: BASOPHILS % (AUTO) 0.2 % (0.0-2.0); EOSINOPHILS % (AUTO) 0.1 % (0.0-4.0); LYMPHOCYTES # (AUTO) 0.4 K/uL (1.0-5.5); LYMPHOCYTES % (AUTO) 3.2 % (20.5-51.5); MEAN CORPUSCULAR HEMOGLOBIN 33 pg (27-31); MEAN CORPUSCULAR HGB CONC 34 % (32-36); MEAN CORPUSCULAR VOLUME 97 fL (79.0-98.0); MONOCYTES # (AUTO) 0.8 K/uL (0.0-1.0); MONOCYTES % (AUTO) 6.3 % (1.7-9.3); NEUTROPHILS # (AUTO) 10.8 K/uL (1.8-7.7); NEUTROPHILS % (AUTO) 90.2 % (40.0-70.0); RED BLOOD CELL COUNT(AUTO) 2.12 MIL/uL (4.2-6.2); RED CELL DISTRIBUTION WIDTH 22.3 % (9.0-15.0)
[2024-09-23 08:00] VITALS: BP_SYST 84; PULSE 104; RESP 18; TEMP 98.6; O2SAT 94; O2SAT 95
[2024-09-23 08:31] LABS: HEMATOCRIT 20.6 % (36-54); PLATELET COUNT (AUTO) 23 K/uL (130-430)
[2024-09-23] MEDS: SODIUM ZIRCONIUM CYCLOSILICATE 10 GM POWD.PACK PO ONE (10:15)
[2024-09-23] MEDS ORDERED: FOLI-43 PO (10:17)
[2024-09-23] MEDS ORDERED: MIDO5TAB4 PO (10:17)
[2024-09-23] MEDS ORDERED: SODI650T PO (10:17)
[2024-09-23] MEDS ORDERED: SEVE800T8 PO (10:17)
[2024-09-23 10:54] VITALS: BP_SYST 84; PULSE 104; RESP 18; TEMP 98.6; O2SAT 96
[2024-09-23 12:01] VITALS: BP_SYST 99; PULSE 102; RESP 17; TEMP 98; O2SAT 98
== END 2024-09-23 12:30 | disposition home or self-care (01) | DRG 432 ==
LOC: SED 09:14 → STU 13:45 → SMU 09-17 13:07 → STU 09-22 07:56 → SMU 09-23 05:55
PROVIDERS: ADMIT Preventive Medicine Preventive Medicine/Occupational Environmental Medicine; ATTEND Preventive Medicine Preventive Medicine/Occupational Environmental Medicine
PROC: 30233N1 Transfusion of Nonautologous Red Blood Cells into Peripheral Vein, Percutaneous Approach (ICD-10-PCS; 2024-09-12)
PROC: 30233R1 Transfusion of Nonautologous Platelets into Peripheral Vein, Percutaneous Approach (ICD-10-PCS; 2024-09-13)
PROC: 0W9G3ZZ Drainage of Peritoneal Cavity, Percutaneous Approach (ICD-10-PCS; 2024-09-13)
PROC: 05HY33Z Insertion of Infusion Device into Upper Vein, Percutaneous Approach (ICD-10-PCS; 2024-09-13)
PROC: 30233K1 Transfusion of Nonautologous Frozen Plasma into Peripheral Vein, Percutaneous Approach (ICD-10-PCS; principal; 2024-09-15)
PROC: 05HY33Z Insertion of Infusion Device into Upper Vein, Percutaneous Approach (ICD-10-PCS; 2024-09-21)
DX: K70.31 Alcoholic cirrhosis of liver with ascites (principal); N18.6 End stage renal disease; E44.0 Moderate protein-calorie malnutrition; N17.9 Acute kidney failure, unspecified; E87.20 Acidosis, unspecified; E87.1 Hypo-osmolality and hyponatremia; D68.59 Other primary thrombophilia; D61.818 Other pancytopenia; I50.30 Unspecified diastolic (congestive) heart failure; K57.32 Diverticulitis of large intestine without perforation or abscess without bleeding; K80.10 Calculus of gallbladder with chronic cholecystitis without obstruction; I13.2 Hypertensive heart and chronic kidney disease with heart failure and with stage 5 chronic kidney disease, or end stage renal disease; D63.8 Anemia in other chronic diseases classified elsewhere; J45.909 Unspecified asthma, uncomplicated; I48.91 Unspecified atrial fibrillation; E88.09 Other disorders of plasma-protein metabolism, not elsewhere classified; E87.5 Hyperkalemia; E83.41 Hypermagnesemia; E83.39 Other disorders of phosphorus metabolism; E86.0 Dehydration; D72.829 Elevated white blood cell count, unspecified; E78.5 Hyperlipidemia, unspecified; R74.01 Elevation of levels of liver transaminase levels; E86.1 Hypovolemia; Z88.8 Allergy status to other drugs, medicaments and biological substances; Z99.2 Dependence on renal dialysis; Z85.47 Personal history of malignant neoplasm of testis; Z79.899 Other long term (current) drug therapy; Z68.26 Body mass index [BMI] 26.0-26.9, adult; D69.59 Other secondary thrombocytopenia; R16.1 Splenomegaly, not elsewhere classified
CPT/HCPCS: 36415; 49083; 71045; 76705; 78226; 80048; 80053; 80076; 81001; 81003; 82140; 82248; 82272; 82948; 83540; 83550; 83605; 83690; 83735; 84100; 84484; 85025; 85044; 85610; 85651; 85730; 86886; 86900; 86901; 86920; 87040; 87086; 92610-GN; 93005; 93306; 94070; 94640; 94760; 97110-GP; 97116-GP; 97530-GP; 99285; A9537; G0378; J1630; J1885; J1956; J2060; J2354; J2405; J3430; J3490; J7030; J7040; J7050; J7060; J7626; P9021; P9034; P9059